=== PATIENT | male | born 1955 | race Caucasian/White ===

== ENCOUNTER 2023-08-15 09:27 | Day surgery (SDC) | payer MEDICARE, SELFPAY ==
[2023-08-13 07:59] VITALS: BMI 32.8
[2023-08-15 09:38] VITALS: BMI 31.4
[2023-08-15 09:53] VITALS: BP 132/78; PULSE 73; RESP 18; TEMP 36.3; O2SAT 97
--- NOTE | 2023-08-15 09:56 | P.CONAN_ITS ---
Documented by User: Arik Ward MD 08/15/23 09:59 [facility] Past Medical History Medical History HTN (hypertension) Hyperlipidemia TIA (transient ischemic attack) History of rheumatic fever as a child Diverticulosis Family History Family history of problems with anesthesia: No Surgical History Surgical History History of total left knee replacement (TKR) Hx of tonsillectomy History of right-sided carotid endarterectomy H/O colonoscopy History of Problems with Anesthesia: No Social History Social History Patient Tobacco Use Status: Former Tobacco user Quit Date: 2010 Use of substances other than those prescribed or required for medical reasons: No Are you DNR?: No Advance Directives: No Advance Directives Information Provided: Yes Meds Allergies Allergy/AdvReac Type Severity Reaction Status Date / Time Penicillins [PENICILLINS] Allergy Unknown Rash Verified 08/15/23 09:11 bee pollen [bee stings] Allergy Unknown Verified 08/13/23 07:56 Active Medications: Current Medications Sodium Biphosphate/Sodium Phosphate (Sodium Phosphate,Yellow Medicine-Dibasic 133 Ml Enema) 133 ml [place] ONCE PRN PRN Reason: Poor Colonoscopy Prep Results Home Medications Medication Instructions Recorded Confirmed Last Taken Type amlodipine 5 mg tablet 5 mg PO DAILY 08/13/23 08/13/23 Unknown History aspirin 81 mg tablet,delayed 81 mg PO DAILY 08/13/23 08/15/23 08/13/23 History release atorvastatin 20 mg tablet 20 mg PO DAILY 08/13/23 08/13/23 Unknown History lisinopril 20 mg tablet 20 mg PO DAILY 08/13/23 08/15/23 08/15/23 07:30 History Exam Height,Weight and Vital Signs: Height 5 ft 7 in Weight 90.889 kg Last Vital Signs Temp 97.3 F 08/15/23 09:53 Pulse 73 08/15/23 09:53 Resp 18 08/15/23 09:53 BP 132/78 08/15/23 09:53 Pulse Ox 97 08/15/23 09:53 O2 Del Method Room Air 08/15/23 09:53 Assessment and Plan Assessment Anesthesia Assessment: Anesthesia Plan Discussed and Chart Reviewed Final Anesthetic Review Family History of Problems with Anesthesia: No History of Problems with Anesthesia: No NPO: Yes ASA Class: III Final Preanesthetic Review: No Changes in Pt Med Stat, Meds/Allgs Chart Reviewed, Consent Obtained/Reviewed and Anes Risks/Benef Reviewed Patient Risk: Intermediate Procedure Risk: Intermediate Anesthetic Plan Anesthetic Plan: MAC: Disposition: Standard PACU Documented by User: Natividad Vergara MD 08/15/23 10:03 [facility] Past Medical History Medical History HTN (hypertension) Hyperlipidemia TIA (transient ischemic attack) History of rheumatic fever as a child Diverticulosis Surgical History Surgical History History of total left knee replacement (TKR) Hx of tonsillectomy History of right-sided carotid endarterectomy H/O colonoscopy Social History Social History Patient Tobacco Use Status: Former Tobacco user Quit Date: 2010 Use of substances other than those prescribed or required for medical reasons: No Are you DNR?: No Advance Directives: No Advance Directives Information Provided: Yes Meds Allergies Allergy/AdvReac Type Severity Reaction Status Date / Time Penicillins [PENICILLINS] Allergy Unknown Rash Verified 08/15/23 09:11 bee pollen [bee stings] Allergy Unknown Verified 08/13/23 07:56 Home Medications Medication Instructions Recorded Confirmed Last Taken Type amlodipine 5 mg tablet 5 mg PO DAILY 08/13/23 08/13/23 Unknown History aspirin 81 mg tablet,delayed 81 mg PO DAILY 08/13/23 08/15/23 08/13/23 History release atorvastatin 20 mg tablet 20 mg PO DAILY 08/13/23 08/13/23 Unknown History lisinopril 20 mg tablet 20 mg PO DAILY 08/13/23 08/15/23 08/15/23 07:30 History Exam Airway Mallampati Class: II TM Dist: >3cm Neck ROM: Full Partial: Upper and Lower Heart: rrr Lungs: cta
[2023-08-15] MEDS: Lactated Ringers 1,000 ML 100 ML IVCONT (10:04)
[2023-08-15 11:07] VITALS: BP 91/50; PULSE 61; RESP 16; TEMP 36.4; O2SAT 95
--- NOTE | 2023-08-15 11:08 | P.BOP_ITS ---
Brief Operative Note Date of Service: 08/15/23 Pre-op diagnosis: Screening Post-op diagnosis: other (Diverticulosis) Procedure: Colonoscopy to the cecum and TI Surgeon: Juan F Katz MD Anesthesia: MAC Was an Spindle Frame Carver used for this Procedure?: No Estimated blood loss (mL): 0 Pathology: none sent Condition: stable Disposition: PACU
[2023-08-15 11:22] VITALS: BP 105/63; PULSE 66; RESP 20; TEMP 36.6; O2SAT 95
--- NOTE | 2023-08-15 12:01 | OP_ITS ---
DATE OF SERVICE: 08/15/2023 SURGEON: Juan F Katz MD INDICATIONS: The patient presents for evaluation of personal history of tubular adenoma of the colon and colorectal cancer screening. Full consent was obtained from him for this, including risks of bleeding and perforation. PREOPERATIVE DIAGNOSIS: POSTOPERATIVE DIAGNOSIS: PROCEDURE PERFORMED: Colonoscopy to the cecum and terminal ileum. ESTIMATED BLOOD LOSS: COMPLICATIONS: ANESTHESIA: Monitored anesthesia care. ASSISTANTS: SPECIMENS: PREOPERATIVE DIAGNOSES: Colorectal cancer screening and personal history of tubular adenoma of the colon. POSTOPERATIVE DIAGNOSES: Colorectal cancer screening, personal history of tubular adenoma of the colon, diverticulosis, and internal hemorrhoids. DESCRIPTION OF PROCEDURE: The patient was placed in the left lateral decubitus position. The digital rectal exam revealed no abnormalities. The Olympus video pediatric colonoscope was then entered into the rectum and advanced easily to the cecum. Once in the cecum, I did identify normal-appearing cecal pouch with appendiceal orifice and a normal-appearing ileocecal valve. The terminal ileum was cannulated and appeared normal. The scope was withdrawn back in the colon. The entire cecum and ileocecal valve appeared normal. The scope was slowly withdrawn, assessing all mucosal surfaces carefully. Preparation was excellent. I did not visualize any sign of polyps, colitis, nor angiodysplasia. There was a mild amount of sigmoid diverticulosis. In the rectum, the scope was retroflexed visualizing small internal hemorrhoids, but no other pathology. The rectal mucosa appeared normal. The scope was straightened and withdrawn from the patient. He tolerated the procedure well and was returned to the recovery area in stable condition. IMPRESSION: 1. Diverticulosis. 2. Internal hemorrhoids. PLAN: The patient has been advised to resume his aspirin today. Given a previous history of a tubular adenoma, I would recommend a followup coloscopy in 5 years for further screening. He will, otherwise, see me on a p.r.n. basis. Juan F Katz MD RMW/VANESSAL / [id number]
== END 2023-08-15 11:54 | disposition home or self-care (01) ==
PROVIDERS: PCP Nurse Practitioner Family; Visit Provider Internal Medicine
PROC: 0DJD8ZZ Inspection of Lower Intestinal Tract, Via Natural or Artificial Opening Endoscopic (ICD-10-PCS; CPT 45378; principal; 2023-08-15 10:50)
DX: Z12.11 Encounter for screening for malignant neoplasm of colon (principal); K57.30 Diverticulosis of large intestine without perforation or abscess without bleeding; K64.8 Other hemorrhoids; Z86.010 Personal history of colon polyps; I10 Essential (primary) hypertension; E78.5 Hyperlipidemia, unspecified; Z86.73 Personal history of transient ischemic attack (TIA), and cerebral infarction without residual deficits; Z87.891 Personal history of nicotine dependence; Z79.82 Long term (current) use of aspirin; Z79.02 Long term (current) use of antithrombotics/antiplatelets; Z79.899 Other long term (current) drug therapy
CPT/HCPCS: G0105; J2371; J2704